=== PATIENT | female | born 1935 | race Caucasian/White ===

== ENCOUNTER → 2017-02-13 18:26 | Outpatient (CLI) | payer MEDICARE, OTHER ==
[2015-12-23 13:39] VITALS: BMI 26.3
[~2017-02-13 18:26] MED LIST: BAYER CHEWABLE81 MG PO; LANOXIN125 MCG PO; MIRALAX17 GM PO; ZOCOR5 MG PO
== END | disposition home or self-care (01) ==
LOC: D.MAMMO 15:30
DX: Z12.31 Encounter for screening mammogram for malignant neoplasm of breast (principal)

== ENCOUNTER 2018-03-25 09:43 | Emergency (ER) | payer MEDICARE, OTHER ==
[2015-12-23 13:39] VITALS: BMI 26.3
[2018-03-25 10:36] LABS: BASOPHILS 0.2 % (0-2); EOSINOPHILS 3.6 % (0-7); HEMATOCRIT 36.9 % (36.0-48.0); IMMATURE GRANULOCYTES 0.3 % (0-5); LYMPHOCYTES 29.4 % (15-50); MCH 26.8 pg (26.0-34.0); MCHC 32.5 g/dL (31.0-37.0); MCV 82.6 fL (80.0-100.0); MEAN PLATELET VOLUME 9.8 fL (7.4-10.4); MONOCYTES 11.6 % (2-11); NEUTROPHILS 54.9 % (40-80); PLATELET COUNT 237 10x3/uL (130-400); RBC 4.47 10x6/uL (4.00-5.40); RDW 15.2 % (11.5-14.5); WBC 6.2 10x3/uL (4.8-10.8)
[2018-03-25 10:37] LABS: APPEARANCE CLEAR (CLEAR); BILIRUBIN NEGATIVE (NEGATIVE); COLOR YELLOW (YELLOW); GLUCOSE NEGATIVE (NEGATIVE); KETONE NEGATIVE (NEGATIVE); NITRITE NEGATIVE (NEGATIVE); PROTEIN NEGATIVE (NEGATIVE); SPECIFIC GRAVITY 1.025 (1.005-1.020); UROBILINOGEN NORMAL (NORMAL); WHITE CELLS - URINE 0-5 /hpf (0-5)
[2018-03-25 10:38] LABS: BACTERIA FEW /hpf (NONE SEEN); EPITHELIAL CELLS RARE /hpf (0-5); MUCUS <1+ /lpf (NONE SEEN); RED CELLS - URINE RARE /hpf (0-5)
[2018-03-25 10:43] LABS: CALC OSMOLALITY 283 mosm/kg (275-300); CALCIUM 8.7 mg/dL (8.5-10.1); CARBON DIOXIDE 29.3 mmol/L (21.0-32.0); CHLORIDE - SERUM 107 mmol/L (98-107); CREATININE - SERUM 0.7 mg/dL (0.6-1.3); GLUCOSE 106 mg/dL (74-106); SODIUM 141 mmol/L (136-145); UREA NITROGEN 22 mg/dL (7-18); eGFR NON AFRICAN AMERICAN 85 mL/min (90-120)
== END 2018-03-25 11:19 | disposition home or self-care (01) ==
LOC: D.ER 09:43
PROVIDERS: Emergency Medicine
DX: N20.1 Calculus of ureter (principal); N23 Unspecified renal colic

== ENCOUNTER 2018-03-26 14:50 | Inpatient (IN) | payer MEDICARE, OTHER ==
[~2018-03-26] VITALS: Ht 153.7 cm; Wt 65.0 kg
--- NOTE | ~2018-03-26 | HP ---
PATIENT: AYAAN MCFADDEN MEDICAL RECORD: [id number] ACCOUNT: [id number] LOCATION:[id number] : 35 ADMISSION DATE: 03/26/18 HISTORY AND PHYSICAL EXAMINATION REASON FOR ADMISSION: Left flank and abdominal pain with constipation. HISTORY OF PRESENT ILLNESS: The patient is an 82-year-old female with previous history of small bowel obstruction. She called 3 days ago with onset of some left flank pain. She had no change in urination. She had previous kidney stones and thought this might be her problem. She was started on Cardura twice daily, forced fluids, and took some hydrocodone from her daughter. She did not improve over the weekend and went to the Emergency Room yesterday at [place]. While there, Dr. Crum evaluated the patient. She had normal CBC and BMP. UA showed scant polyuria. She had a CT of the abdomen and the pelvis with contrast, did not see evidence of kidney stones or obstruction, but did show some diverticular disease in her left colon. She became nauseated last night, had more nausea and some vomiting, could not keep food or medicines down. She came to the office today. Abdominal exam was consistent with sigmoid diverticulitis on palpation. She is now being directly admitted for IV fluids, antiemetics, and IV antibiotics. PAST MEDICAL HISTORY: She had small bowel obstruction on 12/22/2015 that responded to NG gut rest, essential hypertension, paroxysmal atrial fibrillation, known diverticulosis, remote history of renal calculi, partial small bowel obstruction in September of 2015 and November of 2015. 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 ALLERGIES: None known. SOCIAL HISTORY: She is lifelong nonsmoker. Denies alcohol use. She is single. FAMILY HISTORY: Positive for cardiovascular disease in her parents who are . HOME MEDICATIONS: Flonase nasal spray two nasal sprays each nostril daily, digoxin 0.125 mg p.o. at noon daily, aspirin 81 mg chewable daily, MiraLAX 17 grams p.o. daily. ALLERGIES: PRAVASTATIN AND SULFA. REVIEW OF SYSTEMS: GENERAL: She has felt fatigued over the weekend, for the last 3 days. Denies fever. HEENT: No recent visual change, sinus congestion, or sore throat. RESPIRATORY: No severe cough. CARDIAC: No chest pain, palpitations, claudication, or edema. GASTROINTESTINAL: Nausea with intermittent vomiting for the last 24 hours, unable to hold down meds or liquids. She has moderate abdominal pain in the left lower quadrant, worse with walking. She said her stools have been small, pencil-like caliber, for the last several days. Denies blood in stool. GENITOURINARY: No dysuria or incontinence. GYNECOLOGIC: No vaginal bleeding. HISTORY AND PHYSICAL [id number] AYAAN MCFADDEN MUSCULOSKELETAL: She has lumbago without sciatica currently. PSYCHIATRIC: Denies depressed mood. PHYSICAL EXAMINATION: VITAL SIGNS: Temperature is 98 degrees Fahrenheit. Weight is 134 pounds, BMI of 26, height is 5 feet 0 inch. Blood pressure is 112/60. Heart rate is 70 and regular. GENERAL: She feels mildly ill. HEENT: Eyes are clear. Oropharynx unremarkable except for dry mucous membranes. NECK: Supple. CHEST: Clear. HEART: Regular without murmur. ABDOMEN: Soft. Tender in left lower quadrant without rebound. Bowel sounds are active. No CVA tenderness appreciated. No skin rashes noted. RECTAL: Deferred. EXTREMITIES: No CC&E. NEUROLOGIC: Oriented to person, place, and time. Cranial nerves are intact. Gait is normal. CBC yesterday was unremarkable. CT of abdomen as mentioned above. ASSESSMENT: 1. Diverticulitis. 2. Nausea and vomiting, intractable. 3. History of paroxysmal atrial fibrillation. 4. Abdominal pain. 5. History of kidney stones. 6. Remote history of small bowel obstruction. 7. Dyslipidemia. PLAN: The patient is admitted for IV fluids, antiemetics, IV antibiotics. Monitor for signs of recurrent small bowel obstruction. TRANSINT:[id number] Voice Confirmation ID: [id number] DOCUMENT ID: [id number] LYNETTE VEGA MD at 2203 CC: [id number] DICTATION DATE: 03/26/18 170 INCOME TAX INVESTIGATOR: 03/26/18 1834 ADM IN [facility] [address] [place] [id number]
[2018-03-26 15:25] LABS: BASOPHILS 0.1 % (0-2); EOSINOPHILS 1.1 % (0-7); HEMATOCRIT 36.3 % (36.0-48.0); HEMOGLOBIN 11.7 g/dL (12-16); IMMATURE GRANULOCYTES 0.1 % (0-5); LYMPHOCYTES 22.8 % (15-50); MCHC 32.2 g/dL (31.0-37.0); MCV 83.6 fL (80.0-100.0); MEAN PLATELET VOLUME 9.9 fL (7.4-10.4); MONOCYTES 7.6 % (2-11); NEUTROPHILS 68.3 % (40-80); PLATELET COUNT 216 10x3/uL (130-400); RBC 4.34 10x6/uL (4.00-5.40); RDW 15.3 % (11.5-14.5); WBC 7.2 10x3/uL (4.8-10.8)
[2018-03-26 15:53] LABS: ALBUMIN 3.7 g/dL (3.4-5.0); ALKALINE PHOSPHATASE 88 U/L (46-116); ALT (SGPT) 12 U/L (10-68); AMYLASE - SERUM 34 U/L (25-115); BILIRUBIN - TOTAL 0.64 mg/dL (0.2-1.3); CALC OSMOLALITY 293 mosm/kg (275-300); CALCIUM 8.8 mg/dL (8.5-10.1); CARBON DIOXIDE 30.1 mmol/L (21.0-32.0); CHLORIDE - SERUM 105 mmol/L (98-107); CREATININE - SERUM 0.9 mg/dL (0.6-1.3); GLUCOSE 132 mg/dL (74-106); LIPASE 95 U/L (73-393); POTASSIUM - SERUM 3.4 mmol/L (3.5-5.1); PROTEIN - SERUM 7.4 g/dL (6.4-8.2); SODIUM 143 mmol/L (136-145); TROPONIN-I < 0.017 ng/mL (0.000-0.060); UREA NITROGEN 33 mg/dL (7-18); eGFR NON AFRICAN AMERICAN 63 mL/min (90-120)
[2018-03-26 18:57] LABS: APPEARANCE CLEAR (CLEAR); COLOR YELLOW (YELLOW); NITRITE NEGATIVE (NEGATIVE); PROTEIN TRACE mg/dL (NEGATIVE); SPECIFIC GRAVITY 1.015 (1.005-1.020)
[2018-03-26 18:58] LABS: BILIRUBIN NEGATIVE (NEGATIVE); EPITHELIAL CELLS 0-5 /hpf (0-5); GLUCOSE NEGATIVE (NEGATIVE); KETONE NEGATIVE (NEGATIVE); RED CELLS - URINE OCC /hpf (0-5); UROBILINOGEN NORMAL (NORMAL); WHITE CELLS - URINE 25-50 /hpf (0-5)
[2018-03-26 18:59] LABS: BACTERIA FEW /hpf (NONE SEEN)
[2018-03-26 21:07] VITALS: BP 130/59; Ht 153.7 cm; Wt 65.0 kg
[2018-03-26 22:17] VITALS: BP 130/59
[2018-03-27 03:56] VITALS: BP 124/48
[2018-03-27 06:23] LABS: BASOPHILS 0.2 % (0-2); EOSINOPHILS 3.9 % (0-7); HEMATOCRIT 33.2 % (36.0-48.0); HEMOGLOBIN 10.8 g/dL (12-16); IMMATURE GRANULOCYTES 0.2 % (0-5); LYMPHOCYTES 22.6 % (15-50); MCH 27.1 pg (26.0-34.0); MCHC 32.5 g/dL (31.0-37.0); MCV 83.4 fL (80.0-100.0); MEAN PLATELET VOLUME 10.1 fL (7.4-10.4); MONOCYTES 11.6 % (2-11); NEUTROPHILS 61.5 % (40-80); PLATELET COUNT 220 10x3/uL (130-400); RBC 3.98 10x6/uL (4.00-5.40); RDW 15.5 % (11.5-14.5); WBC 5.8 10x3/uL (4.8-10.8)
[2018-03-27 06:45] LABS: CALC OSMOLALITY 288 mosm/kg (275-300); CALCIUM 8.2 mg/dL (8.5-10.1); CARBON DIOXIDE 26.7 mmol/L (21.0-32.0); CHLORIDE - SERUM 110 mmol/L (98-107); CREATININE - SERUM 0.7 mg/dL (0.6-1.3); GLUCOSE 122 mg/dL (74-106); POTASSIUM - SERUM 3.8 mmol/L (3.5-5.1); SODIUM 144 mmol/L (136-145); eGFR NON AFRICAN AMERICAN 85 mL/min (90-120)
[2018-03-27 06:48] LABS: UREA NITROGEN 15 mg/dL (7-18)
[2018-03-27 10:03] VITALS: BP 115/56
[2018-03-27 13:35] VITALS: BP 137/50
[2018-03-27 16:54] VITALS: BP 130/51
[2018-03-27 21:38] VITALS: BP 113/45
[2018-03-28 03:50] VITALS: BP 124/54
[2018-03-28] MEDS ORDERED: CIPRO500 MG PO (07:52)
[2018-03-28] MEDS ORDERED: ZOFRAN ODT4 MG/UDTAB PO (07:53)
[2018-03-28 08:30] VITALS: BP 121/57
== END 2018-03-28 11:12 | disposition home or self-care (01) | DRG 690 ==
LOC: D.ER 14:50 → D.EDHOLD 17:27 → D.MS 17:27
PROVIDERS: Family Medicine
DX: N39.0 Urinary tract infection, site not specified (principal); K57.32 Diverticulitis of large intestine without perforation or abscess without bleeding; I48.0 Paroxysmal atrial fibrillation; E86.0 Dehydration

== ENCOUNTER → 2018-07-05 07:24 | Outpatient (CLI) | payer MEDICARE, OTHER ==
[2018-03-26 21:07] VITALS: BMI 27.5
[~2018-07-05 07:24] MED LIST changes: +CIPRO500 MG PO; +ZOFRAN ODT4 MG/UDTAB PO
== END | disposition home or self-care (01) ==
LOC: D.RT 07:24
DX: R06.09 Other forms of dyspnea (principal)

== ENCOUNTER → 2018-12-25 08:00 | Outpatient (CLI) | payer MEDICARE, OTHER ==
[2018-03-26 21:07] VITALS: BMI 27.5
== END | disposition home or self-care (01) ==
LOC: D.MAMMO 08:00
PROVIDERS: ATTEND Family Medicine
DX: Z12.31 Encounter for screening mammogram for malignant neoplasm of breast (principal)

== ENCOUNTER → 2019-06-04 08:38 | Outpatient (CLI) | payer MEDICARE, OTHER ==
[2018-03-26 21:07] VITALS: BMI 27.5
== END | disposition home or self-care (01) ==
LOC: D.CT 08:38
PROVIDERS: ATTEND Family Medicine
DX: R31.9 Hematuria, unspecified (principal)

== ENCOUNTER → 2019-06-18 10:43 | Outpatient (CLI) | payer MEDICARE, OTHER ==
[2018-03-26 21:07] VITALS: BMI 27.5
== END | disposition home or self-care (01) ==
LOC: D.US 10:43
PROVIDERS: ATTEND Family Medicine
DX: N28.1 Cyst of kidney, acquired (principal)

== ENCOUNTER → 2019-10-15 12:20 | Outpatient (CLI) | payer MEDICARE, OTHER ==
[2018-03-26 21:07] VITALS: BMI 27.5
--- NOTE | 2019-10-16 15:25 | EC ---
PATIENT:AYAAN MCFADDEN DATE OF SERVICE: 10/15/19 SEX: F MEDICAL RECORD: [id number] DATE OF : 35 LOCATION:[facility] AGE OF PATIENT: 84 ADMISSION DATE: 10/15/19 REFERRING PHYSICIAN: INTERPRETING PHYSICIAN: VIRGEN DAILEY MD ECHOCARDIOGRAM REPORT ECHO CHARGES 4 ECHO COMPLETE Date: 10/15/19 CLINICAL DIAGNOSIS: MITRAL REGURG ECHOCARDIOGRAPHIC MEASUREMENTS (adult normal given) AC root (d.<3.7cm) 3.0 cm LV Septum d (<1.2 cm> 2.0 cm Valve Excursion 1.7 cm LV Septum (systole) 2.1 cm Left Atria (s.<4.0cm> 3.8 cm LVPW d(<1.2cm) 1.7 cm RV (d.<2.3cm) 2.9 cm LVPW (sytole) 1.9 cm LV diastole(<5.6CM) 3.7 cm MV E-F(>70mm/sec) cm LV systole 2.1 cm LVOT Diameter 1.9 cm MV exc.(>10mm) cm Est.ejection fraction (50-75%) % DOPPLER: LVIT cm/sec A 125.0cm/sec E 119.0 cm/sec LA cm/sec RVSP 35 mmHg LVOT 146 cm/sec AOP1/2T m/s Asc. Ao 196 cm/sec RVOT 102 cm/sec RA cm/sec PA 134 cm/sec AV Gradient Peak 15.34mmHg AV Mean 8.48 mmHg AV Area 2.2 cm MV Gradient Peak 7.98 mmHg MV Mean 2.93 mmHg MV Area cm COMMENTS: Civil Cadd Technician: Beata BACK [employer] Consultant: 1 Dr. Dailey TAPE# PACS Pericardial Effusion N DATE OF SERVICE: ECHOCARDIOGRAM FINDINGS: 1. Left ventricular chamber size is within normal limits. Left ventricular systolic function is normal at 65% to 70%. 2. Left atrium, right atrium, and right ventricle chamber sizes are within normal limits. 3. Valvular structures have normal structure and motion. ECHOCARDIOGRAM REPORT [id number] AYAAN MCFADDEN 4. Doppler interrogation reveals mild mitral regurgitation, mild tricuspid regurgitation, no other valvular insufficiency or stenosis. Pulmonary systolic pressure is estimated at 35 mmHg. 5. No evidence of pericardial effusion or left ventricular thrombus. TRANSINT:[id number] Voice Confirmation ID: [id number] DOCUMENT ID: [id number] VIRGEN DAILEY MD at 1525 CC: [id number] DICTATION DATE: 10/15/19 1548 GEOTECHNICAL INTERN: 10/16/19 0016 DEP CLI 10/15/19 [place] [id number] [place] [id number]
== END | disposition home or self-care (01) ==
LOC: D.HCCECHO 12:20
PROVIDERS: ATTEND Internal Medicine Interventional Cardiology
DX: I34.0 Nonrheumatic mitral (valve) insufficiency (principal)